=== PATIENT | female | born 1985 | race Caucasian/White ===

== ENCOUNTER 2016-12-03 19:40 | Emergency (ER) | payer OTHER, MEDICAID ==
[2016-12-03 22:37] VITALS: BP 134/80
[2016-12-03] MEDS ORDERED: cefTRIAXone 1 GM, Lidocaine 1% 2.1 ML IM ONE ×2 (23:11)
--- NOTE | 2016-12-03 23:21 | EDM.PDOC ---
ED HPI ENT - General Chief Complaint: ENT Problem Stated Complaint: LT SIDE FACE SWOLLEN Time Seen by Provider: 12/03/16 22:53 Source: Reports: Patient History Limitations: Reports: No limitations - History of Present Illness Timing/Duration: Reports: Day(s): Severity: moderate Location: Reports: left Ear Quality: Reports: Same as previous episode, Sharp, Throbbing Improves with: Reports: None Worsens with: Reports: None Associated symptoms: Reports: denies other symptoms Treatment(s) [employer]: Reports: NSAIDS, Other (see below) - Related Data Allergies/ADRs: Allergies Allergy/AdvReac Type Severity Reaction Status Date / Time levofloxacin [From Levaquin] AdvReac Nausea Verified 12/03/16 22:40 Home Meds: Home Meds Cefdinir [Omnicef] 600 mg PO DAILY 12/03/16 [History] FLUoxetine [PROzac] 20 mg PO DAILY 12/03/16 [History] Past Medical History HEENT History: Reports: Otitis media Other OB/BYN History: Recent mastitis Psychiatric History: Reports: Anxiety, Depression - Infectious Disease History Infectious Disease History: Reports: Chicken pox Social & Family History - Tobacco Use Smoking Status *Q: Current Some Day Smoker Years of Tobacco use: 10 Packs/Tins Daily: 0.2 Used Tobacco, but Quit: Yes Month Tobacco Last Used: 48 Second Hand Smoke Exposure: No - Caffeine Use Caffeine Use: Reports: Coffee - Recreational Drug Use Recreational Drug Use: No - Living Situation & Occupation Living situation: Reports: Occupation: employed (lives in [facility]) ED ROS ENT - Review of Systems Review Of Systems: See Below Constitutional: Reports: fever, chills, malaise HEENT: Reports: Ear pain Respiratory: Reports: no symptoms Cardiovascular: Reports: No symptoms Endocrine: Reports: no symptoms GI/Abdominal: Reports: No symptoms : Reports: no symptoms Musculoskeletal: Reports: no symptoms Skin: Reports: no symptoms Neurological: Reports: no symptoms Psychiatric: Reports: No symptoms Hematologic/Lymphatic: Reports: no symptoms Immunologic: Reports: no symptoms ED EXAM, ENT - Physical Exam Exam: See Below Exam Limited By: No limitations General Appearance: alert, WD/WN, no apparent distress Eye Exam: bilateral eye: normal inspection Ears: canal discharge, canal swelling (Unable to visualize TMs due to edema), other (Left ear canal very tender to exam) Nose: normal inspection Mouth/Throat: Normal inspection, Normal gums, Normal lips, Normal oropharynx, Normal teeth Head: atraumatic, normocephalic Neck: normal inspection, supple, non-tender, full range of motion Respiratory/Chest: no respiratory distress, lungs clear Cardiovascular: regular rate, rhythm, no murmur, no rub GI/Abdominal: normal bowel sounds (Female) Exam: Deferred Rectal (Female) Exam: Deferred Back: normal inspection Extremities: normal inspection Neurological: alert, oriented Psychiatric: normal affect, normal mood Skin: Warm Lymphatic: no adenopathy Course - Vital Signs Last Recorded V/S: Last Vital Signs Temp 38.4 C H 12/03/16 22:36 Pulse 126 H 12/03/16 22:36 Resp 18 12/03/16 22:36 BP 134/80 12/03/16 22:36 Pulse Ox 96 12/03/16 22:36 - Orders/Labs/Meds Meds: Medications Discontinued Medications Generic Name Dose Route Start Last Admin Trade Name Marcel PRN Reason Stop Dose Admin Ceftriaxone Sodium 1 gm/ 0 gm 12/03/16 23:11 Lidocaine HCl 2.1 ml IM 12/03/16 23:12 ONETIME ONE - Re-Assessments/Exams Free Text/Narrative Re-Assessment/Exam: 12/03/16 23:20 Will give Rocephin with lidocaine 1 g IM, change antibiotic therapy from Cefnir 300mg daily to clindamycin 150 tabs 3 times a day x10 days, advised to continue the Ciprodex drops to left ear, Percocet one to 2 tabs every 4-6 when necessary pain, continue Motrin as directed, followup with primary care for recheck in 3 day, will need to return to ER or urgent care for recheck if not improved or symptoms worsen 12/03/16 23:21 Departure - Departure Time of Disposition: 23:23 Disposition: Home, Self-Care 01 Condition: good Clinical Impression: Otitis media, Otitis externa Forms: ED Department Discharge Care Plan Goals: Otitis externa/media -Rocephin 1 g IM and ER -Stop Ceftin -Start clindamycin 150 mg take 2 capsules 3 times a day x10 days -Treat pain with Percocet one to 2 by mouth every 4-6 when necessary pain -Continue with ibuprofen 600 by mouth every 8 when necessary pain -Primary care recheck in 3 days -Return to urgent care or ER sooner if has increased pain, fever, chills, nausea , vomiting, diarrhea, rash or any concerns. - Problem List & Annotations (1) Otitis externa SNOMED Code(s): 1097118 Code(s): H60.90 - UNSPECIFIED OTITIS EXTERNA, UNSPECIFIED EAR Status: Acute Priority: High Current Visit: Yes Qualifiers: Otitis externa type: swimmer's ear Laterality: left (2) Otitis media SNOMED Code(s): 20089496 Code(s): H66.90 - OTITIS MEDIA, UNSPECIFIED, UNSPECIFIED EAR Status: Acute Priority: Medium Current Visit: Yes Qualifiers: Laterality: left Chronicity: acute Spontaneous tympanic membrane rupture : without spontaneous rupture - Problem List Review Problem List Initiated/Reviewed/Updated: Yes - Assessment/Plan Plan: Otitis externa/media -Rocephin 1 g IM and ER -Stop Ceftin -Start clindamycin 150 mg take 2 capsules 3 times a day x10 days -Treat pain with Percocet one to 2 by mouth every 4-6 when necessary pain -Continue with ibuprofen 600 by mouth every 8 when necessary pain -Primary care recheck in 3 days -Return to urgent care or ER sooner if has increased pain, fever, chills, nausea , vomiting, diarrhea, rash or any concerns.
== END 2016-12-04 00:24 | disposition home or self-care (01) ==
LOC: JP.ED 19:40
DX: H60.90 Unspecified otitis externa, unspecified ear (principal); H66.90 Otitis media, unspecified, unspecified ear; F17.210 Nicotine dependence, cigarettes, uncomplicated; Z79.899 Other long term (current) drug therapy
CPT/HCPCS: 96372; 99283; J0696

== ENCOUNTER 2018-03-02 06:47 | Emergency (ER) | payer MEDICAID, OTHER ==
[2018-03-02] MEDS ORDERED: Ondansetron 4 MG/2 ML SDV IVPUSH ONE (07:53)
[2018-03-02] MEDS ORDERED: Ketorolac 30 MG/ML SDV IVPUSH ONE (07:53)
[2018-03-02] MEDS ORDERED: Sodium Chloride 0.9% 1,000 ML IV ONE (07:54)
--- NOTE | 2018-03-02 07:58 | EDM.PDOC ---
ED HPI GENERAL MEDICAL PROBLEM - General Chief Complaint: Abdominal Pain Stated Complaint: ABDOMINAL PAIN / VOMITING Time Seen by Provider: 03/02/18 07:45 Source of Information: Reports: Patient History Limitations: Reports: No Limitations - History of Present Illness INITIAL COMMENTS - FREE TEXT/NARRATIVE: 32-year-old female, usually healthy was drinking alcohol last night but felt fine. She was also trying to stay hydrated, went to bed about 1:00 and woke up at 3 AM very nauseated with a headache. She's had persistent emesis ever since. She is having strong upper abdominal and left upper quadrant cramping. No radiation of pain to her back, chills but no fever, no diarrhea. She has a horrible headache and is miserable. Onset: Sudden (Woke at 3 AM, 5 hours ago with symptoms) Severity: Moderate Associated Symptoms: Reports: Loss of Appetite, Nausea/Vomiting. Denies: Cough , Shortness of Breath Upper Abdomen Pain Score (Numeric/FACES): 6 - Related Data Allergies Allergy/AdvReac Type Severity Reaction Status Date / Time levofloxacin [From Levaquin] AdvReac Nausea Verified 03/02/18 07:26 Home Meds: Home Meds FLUoxetine [PROzac] 20 mg PO DAILY 12/03/16 [History] ClonazePAM [KlonoPIN] 1 tab PO DAILY 03/02/18 [History] Naltrexone 1 tab PO BID 03/02/18 [History] buPROPion [buPROPion XL] 150 mg PO BID 03/02/18 [History] Past Medical History HEENT History: Reports: Otitis Media Other OB/BYN History: Recent mastitis Psychiatric History: Reports: Anxiety, Depression - Infectious Disease History Infectious Disease History: Reports: Chicken Pox - Past Surgical History Female Surgical History: Reports: Tubal Ligation Social & Family History - Tobacco Use Smoking Status *Q: Current Every Day Smoker Years of Tobacco use: 15 Packs/Tins Daily: 0.2 Used Tobacco, but Quit: No Second Hand Smoke Exposure: Yes - Caffeine Use Caffeine Use: Reports: Coffee, Energy Drinks, Soda - Alcohol Use Days Per Week of Alcohol Use: 1 Number of Drinks Per Day: 4 Total Drinks Per Week: 4 Date of Last Drink: 03/02/18 Time of Last Drink: 01:00 - Recreational Drug Use Recreational Drug Use: No - Living Situation & Occupation Living situation: Reports: Occupation: Employed ED ROS GENERAL - Review of Systems Review Of Systems: See Below Constitutional: Reports: Chills, Malaise. Denies: Fever HEENT: Reports: No Symptoms Respiratory: Denies: Shortness of Breath Cardiovascular: Denies: Chest Pain GI/Abdominal: Reports: Abdominal Pain, Nausea, Vomiting. Denies: Diarrhea : Reports: No Symptoms Skin: Reports: No Symptoms Neurological: Reports: Headache Psychiatric: Reports: No Symptoms ED EXAM, GI/ABD - Physical Exam Exam: See Below Exam Limited By: No Limitations General Appearance: Alert, Mild Distress (Looks very uncomfortable, actively vomiting) Eyes: Bilateral: Normal Appearance Respiratory/Chest: No Respiratory Distress Cardiovascular: Regular Rate, Rhythm. No: Tachycardia GI/Abdominal Exam: Soft, Tender (Reacts with tenderness to palpation over the epigastric and left upper quadrant), Abnormal Bowel Sounds (Very hypoactive bowel sounds, no distention) Neurological: Alert Skin Exam: Warm, Dry Course - Vital Signs Last Recorded V/S: Last Vital Signs Temp 96.8 F 03/02/18 09:19 Pulse 105 H 03/02/18 09:19 Resp 14 03/02/18 09:19 BP 114/57 L 03/02/18 09:19 Pulse Ox 98 03/02/18 09:19 - Orders/Labs/Meds Labs: Laboratory Tests 03/02/18 03/02/18 Range/Units 08:03 08:03 WBC 12.7 H (4.5-11.0) K/uL RBC 4.44 (3.30-5.50) M/uL Hgb 13.5 (12.0-15.0) g/dL Hct 40.1 (36.0-48.0) % MCV 90 (80-98) fL MCH 30 (27-31) pg MCHC 34 (32-36) % Plt Count 285 (150-400) K/uL Neut % (Auto) 84 H (36-66) % Lymph % (Auto) 12 L (24-44) % [place] % (Auto) 3 (2-6) % Eos % (Auto) 1 L (2-4) % Baso % (Auto) 0 (0-1) % Sodium 139 L (140-148) mmol/L Potassium 4.5 (3.6-5.2) mmol/L Chloride 104 (100-108) mmol/L Carbon Dioxide 21 (21-32) mmol/L Anion Gap 18.5 H (5.0-14.0) mmol/L BUN 10 (7-18) mg/dL Creatinine 0.7 (0.6-1.0) mg/dL Est Cr Clr Drug Dosing 86.26 mL/min Estimated GFR (MDRD) > 60 (>60) Glucose 82 (74-106) mg/dL Calcium 8.2 L (8.5-10.1) mg/dL Lipase 108 (73-393) U/L Meds: Medications Discontinued Medications Generic Name Dose Route Start Last Admin Trade Name Freq PRN Reason Stop Dose Admin Sodium Chloride 1,000 mls @ 1,000 mls/hr 03/02/18 07:54 03/02/18 08:26 Normal Saline IV 03/02/18 08:53 1,000 mls/hr ONETIME ONE Administration Ketorolac Tromethamine 30 mg 03/02/18 07:53 03/02/18 08:29 Toradol IVPUSH 03/02/18 07:54 30 mg ONETIME ONE Administration Ondansetron HCl 4 mg 03/02/18 07:53 03/02/18 08:27 Zofran IVPUSH 03/02/18 07:54 4 mg ONETIME ONE Administration - Re-Assessments/Exams Free Text/Narrative Re-Assessment/Exam: 03/02/18 07:57 Patient will be hydrated with 1 L of normal saline, given 4 mg of Zofran and 30 mg of IV Toradol. CBC BMP and lipase are obtained for reassurance. 03/02/18 08:43 Patient responded well to the medication and hydration. White count was slightly elevated, the rest of the labs were reassuring. She'll be discharged with 5 additional doses of Zofran to use as needed and can return if worsening. Departure - Departure Time of Disposition: 09:23 Disposition: Home, Self-Care 01 Condition: Good Clinical Impression: Abdominal pain Qualifiers: Abdominal location: upper abdomen, unspecified Qualified Code(s): R10.10 - Upper abdominal pain, unspecified Nausea and vomiting Qualifiers: Vomiting type: unspecified Vomiting Intractability: non-intractable Qualified Code(s): R11.2 - Nausea with vomiting, unspecified - Discharge Information Instructions: Nausea and Vomiting, Adult Referrals: PCP,None [Primary Care Provider] - Forms: ED Department Discharge Care Plan Goals: Rest today, use Zofran as needed for persistent nausea and increase fluids as tolerated with small frequent amounts. Return if worsening despite treatment.
[2018-03-02 09:20] VITALS: BP 114/57
== END 2018-03-02 09:23 | disposition home or self-care (01) ==
LOC: JP.ED 06:47
DX: R10.10 Upper abdominal pain, unspecified (principal); R11.2 Nausea with vomiting, unspecified; F17.210 Nicotine dependence, cigarettes, uncomplicated; Z88.1 Allergy status to other antibiotic agents; Z79.899 Other long term (current) drug therapy
CPT/HCPCS: 36415; 80048; 83690; 85025; 96361; 96374; 96375; 99284; J1885; J2405; J7030

== ENCOUNTER 2018-06-21 17:45 | Observation (INO) | payer OTHER ==
[2018-06-21] MEDS ORDERED: Sodium Chloride 0.9% 10 ML Syringe FLUSH PRN (18:49)
[2018-06-21] MEDS ORDERED: Ondansetron 4 MG/2 ML SDV IVPUSH ONE (18:55)
[2018-06-21] MEDS ORDERED: HYDROmorphone 0.5 MG/0.5 ML Syringe IVPUSH ONE (18:55)
--- NOTE | 2018-06-21 18:58 | EDM.PDOC ---
ED HPI GENERAL MEDICAL PROBLEM - General Chief Complaint: Abdominal Pain Stated Complaint: ABD PAIN Time Seen by Provider: 06/21/18 18:45 Source of Information: Reports: Patient, Family, RN Notes Reviewed History Limitations: Reports: No Limitations - History of Present Illness INITIAL COMMENTS - FREE TEXT/NARRATIVE: Ana presents today with complaints of worsening fever, left flank pain and abdominal pain for 24 hours. She did have a UA done in the clinic yesterday with no other lab work. She was prescribed bactrim DS, has taken 2 doses. Right Abdominal Pain Score (Numeric/FACES): 8 Right Posterior Flank Pain Score (Numeric/FACES): 6 - Related Data Allergies Allergy/AdvReac Type Severity Reaction Status Date / Time levofloxacin [From Levaquin] AdvReac Nausea Verified 06/21/18 18:40 Home Meds: Home Meds RX: FLUoxetine [PROzac] 20 mg PO DAILY 12/03/16 [History] Naltrexone 50 mg PO BID 03/02/18 [History] RX: ClonazePAM [KlonoPIN] 1 tab PO DAILY 03/02/18 [History] Sulfamethoxazole/Trimethoprim [Bactrim Ds Tablet] 1 each PO BID 06/21/18 [ History] buPROPion HCl [Wellbutrin SR] 150 mg PO BID 06/21/18 [History] Past Medical History HEENT History: Reports: Otitis Media Genitourinary History: Reports: UTI, Recurrent [employer] History: Reports: Other [employer] History: Recent mastitis Psychiatric History: Reports: Anxiety, Depression - Infectious Disease History Infectious Disease History: Reports: Chicken Pox - Past Surgical History Female Surgical History: Reports: Tubal Ligation Social & Family History - Tobacco Use Smoking Status *Q: Light Tobacco Smoker Years of Tobacco use: 16 Packs/Tins Daily: 0.1 - Caffeine Use Caffeine Use: Reports: Coffee, Energy Drinks, Soda - Recreational Drug Use Recreational Drug Use: No - Living Situation & Occupation Living situation: Reports: Occupation: Employed ED ROS GENERAL - Review of Systems Review Of Systems: See Below Constitutional: Reports: Fever, Chills. Denies: Malaise, Weakness HEENT: Reports: No Symptoms Respiratory: Reports: No Symptoms Cardiovascular: Reports: No Symptoms Endocrine: Reports: No Symptoms GI/Abdominal: Reports: Nausea, Vomiting : Reports: Dysuria, Flank Pain, Pain. Denies: Frequency, Hematuria, Urgency, Urinary Retention Musculoskeletal: Reports: Other (Left flank pain) Skin: Reports: No Symptoms Neurological: Reports: No Symptoms Psychiatric: Reports: No Symptoms Hematologic/Lymphatic: Reports: No Symptoms Immunologic: Reports: No Symptoms ED EXAM, GI/ABD - Physical Exam Exam: See Below Text/Narrative:: Ana presents today for complaints of worsening fever, left flank pain. Exam Limited By: No Limitations General Appearance: Alert, WD/WN, Moderate Distress Eyes: Bilateral: Normal Appearance, EOMI Ears: Normal External Exam, Normal Canal, Hearing Grossly Normal, Normal TMs Nose: Normal Inspection, Normal Mucosa, No Blood Throat/Mouth: Normal Inspection, Normal Lips, Normal Teeth, Normal Gums, Normal Oropharynx, Normal Voice, No Airway Compromise Head: Atraumatic, Normocephalic Neck: Normal Inspection, Supple, Non-Tender, Full Range of Motion. No: Lymphadenopathy (R), Lymphadenopathy (L) Respiratory/Chest: No Respiratory Distress, Lungs Clear, Normal Breath Sounds, No Accessory Muscle Use, Chest Non-Tender Cardiovascular: Normal Peripheral Pulses, Regular Rate, Rhythm, No Edema, No Murmur, No Rub GI/Abdominal Exam: Normal Bowel Sounds, Soft, No Organomegaly, No Distention, No Mass, Tender, Other (Tenderness to RLQ). No: Guarding, Rigid, Rebound Back Exam: Full Range of Motion, CVA Tenderness (R). No: CVA Tenderness (L), Decreased Range of Motion, Muscle Spasm Extremities: Normal Inspection, Normal Range of Motion, Non-Tender, No Pedal Edema, Normal Capillary Refill Neurological: Alert, Oriented, CN II-XII Intact, Normal Cognition, Normal Gait, Normal Reflexes, No Motor/Sensory Deficits Psychiatric: Normal Affect, Normal Mood Skin Exam: Dry, Intact, Normal Color, No Rash, Increased Warmth Lymphatic: No Adenopathy Course - Vital Signs Last Recorded V/S: Last Vital Signs Temp 37.2 C 06/21/18 22:24 Pulse 103 H 06/21/18 22:24 Resp 18 06/21/18 22:24 BP 107/59 L 06/21/18 22:24 Pulse Ox 96 06/21/18 22:24 - Orders/Labs/Meds Orders: Active Orders 24 hr Category Date Time Status CULTURE BLOOD [BC] Stat Lab 06/21/18 18:55 Received CULTURE BLOOD [BC] Stat Lab 06/21/18 19:05 Received CULTURE URINE [RM] Stat Lab 06/21/18 18:56 Received Sodium Chloride 0.9% [Saline Flush] Med 06/21/18 18:49 Active 10 ml FLUSH ASDIRECTED PRN Saline Lock Insert [OM.PC] Routine Oth 06/21/18 18:49 Ordered Medication Orders Acetaminophen (Tylenol) 650 mg PO Q4H PRN PRN Reason: Pain (Mild 1-3)/fever Bupropion HCl (Wellbutrin Xl) 150 mg PO BID [facility] Clonazepam (Klonopin) 0.5 mg PO DAILY [facility] Last Admin: 06/21/18 22:42 Dose: Not Given Fluoxetine HCl (Prozac) 20 mg PO DAILY [facility] Sodium Chloride (Normal Saline) 1,000 mls @ 125 mls/hr IV ASDIRECTED [facility] Last Admin: 06/21/18 22:43 Dose: 125 mls/hr Ibuprofen (Motrin) 600 mg PO Q6H PRN PRN Reason: Pain/Fever Naltrexone HCl (Naltrexone) 50 mg PO BID [facility] Ondansetron HCl (Zofran Odt) 4 mg PO Q6H PRN PRN Reason: Nausea able to take PO Ondansetron HCl (Zofran) 4 mg IV Q6H PRN PRN Reason: Nausea/Vomiting Sodium Chloride (Saline Flush) 10 ml FLUSH ASDIRECTED PRN PRN Reason: Keep Vein Open Labs: Laboratory Tests 06/21/18 06/21/18 06/21/18 Range/Units 18:56 19:09 19:09 WBC 15.3 H (4.5-11.0) K/uL RBC 4.44 (3.30-5.50) M/uL Hgb 13.7 (12.0-15.0) g/dL Hct 40.6 (36.0-48.0) % MCV 91 (80-98) fL MCH 31 (27-31) pg MCHC 34 (32-36) % Plt Count 273 (150-400) K/uL Neut % (Auto) 87 H (36-66) % Lymph % (Auto) 8 L (24-44) % [place] % (Auto) 5 (2-6) % Eos % (Auto) 0 L (2-4) % Baso % (Auto) 0 (0-1) % Sodium 132 L (140-148) mmol/L Potassium 4.0 (3.6-5.2) mmol/L Chloride 99 L (100-108) mmol/L Carbon Dioxide 25 (21-32) mmol/L Anion Gap 12.0 (5.0-14.0) mmol/L BUN 10 (7-18) mg/dL Creatinine 0.9 (0.6-1.0) mg/dL Est Cr Clr Drug Dosing 76.77 mL/min Estimated GFR (MDRD) > 60 (>60) Glucose 88 (74-106) mg/dL Lactic Acid (0.4-2.0) mmol/L Calcium 8.5 (8.5-10.1) mg/dL Total Bilirubin 0.6 D (0.2-1.0) mg/dL AST 13 L (15-37) U/L ALT 23 (12-78) U/L Alkaline Phosphatase 45 L (46-116) U/L C-Reactive Protein 10.10 H (0.0-0.3) mg/dL Total Protein 7.2 (6.4-8.2) g/dL Albumin 3.2 L (3.4-5.0) g/dL Globulin 4.0 H (2.3-3.5) g/dL Albumin/Globulin Ratio 0.8 L (1.2-2.2) Urine Color Yellow Urine Appearance Slightly cloudy Urine pH 6.5 (4.5-8.0) Ur Specific [place] 1.005 L (1.008-1.030) Urine Protein Negative (NEGATIVE) mg/dL Urine Glucose (UA) Normal (NEGATIVE) mg/dL Urine Ketones Negative (NEGATIVE) mg/dL Urine Occult Blood Moderate (NEGATIVE) Urine Nitrite Negative (NEGATIVE) Urine Bilirubin Negative (NEGATIVE) Urine Urobilinogen Normal (NORMAL) mg/dL Ur Leukocyte Esterase Large (NEGATIVE) Urine RBC 5-10 H (0-5) Urine WBC 75-100 H (0-5) Ur Epithelial Cells Moderate Amorphous Sediment Not seen Urine Bacteria Many Urine Mucus Not seen 06/21/18 Range/Units 19:09 WBC (4.5-11.0) K/uL RBC (3.30-5.50) M/uL Hgb (12.0-15.0) g/dL Hct (36.0-48.0) % MCV (80-98) fL MCH (27-31) pg MCHC (32-36) % Plt Count (150-400) K/uL Neut % (Auto) (36-66) % Lymph % (Auto) (24-44) % [place] % (Auto) (2-6) % Eos % (Auto) (2-4) % Baso % (Auto) (0-1) % Sodium (140-148) mmol/L Potassium (3.6-5.2) mmol/L Chloride (100-108) mmol/L Carbon Dioxide (21-32) mmol/L Anion Gap (5.0-14.0) mmol/L BUN (7-18) mg/dL Creatinine (0.6-1.0) mg/dL Est Cr Clr Drug Dosing mL/min Estimated GFR (MDRD) (>60) Glucose (74-106) mg/dL Lactic Acid 1.3 (0.4-2.0) mmol/L Calcium (8.5-10.1) mg/dL Total Bilirubin (0.2-1.0) mg/dL AST (15-37) U/L ALT (12-78) U/L Alkaline Phosphatase (46-116) U/L C-Reactive Protein (0.0-0.3) mg/dL Total Protein (6.4-8.2) g/dL Albumin (3.4-5.0) g/dL Globulin (2.3-3.5) g/dL Albumin/Globulin Ratio (1.2-2.2) Urine Color Urine Appearance Urine pH (4.5-8.0) Ur Specific [place] (1.008-1.030) Urine Protein (NEGATIVE) mg/dL Urine Glucose (UA) (NEGATIVE) mg/dL Urine Ketones (NEGATIVE) mg/dL Urine Occult Blood (NEGATIVE) Urine Nitrite (NEGATIVE) Urine Bilirubin (NEGATIVE) Urine Urobilinogen (NORMAL) mg/dL Ur Leukocyte Esterase (NEGATIVE) Urine RBC (0-5) Urine WBC (0-5) Ur Epithelial Cells Amorphous Sediment Urine Bacteria Urine Mucus Patient status, lab work reviewed with Dr. Fish. We will administer another liter of IV fluids, toradol and reassess. Meds: Medications Generic Name Dose Route Start Last Admin Trade Name Freq PRN Reason Stop Dose Admin Acetaminophen 650 mg 09/15/18 22:24 Tylenol PO Q4H PRN Pain (Mild 1-3)/fever Bupropion HCl 150 mg 06/22/18 09:00 Wellbutrin Xl PO BID [facility] Clonazepam 0.5 mg 06/21/18 22:45 06/21/18 22:42 Klonopin PO Not Given DAILY [facility] Fluoxetine HCl 20 mg 06/22/18 09:00 Prozac PO DAILY [facility] Sodium Chloride 1,000 mls @ 125 mls/hr 06/21/18 22:24 06/21/18 22:43 Normal Saline IV 125 mls/hr ASDIRECTED [facility] Administration Ibuprofen 600 mg 06/21/18 22:24 Motrin PO Q6H PRN Pain/Fever Naltrexone HCl 50 mg 06/22/18 09:00 Naltrexone PO BID [facility] Ondansetron HCl 4 mg 06/21/18 22:24 Zofran Odt PO Q6H PRN Nausea able to take PO Ondansetron HCl 4 mg 06/21/18 22:24 Zofran IV Q6H PRN Nausea/Vomiting Sodium Chloride 10 ml 06/21/18 18:49 Saline Flush FLUSH ASDIRECTED PRN Keep Vein Open Discontinued Medications Generic Name Dose Route Start Last Admin Trade Name Freq PRN Reason Stop Dose Admin Ceftriaxone Sodium 2,000 mg 06/21/18 19:13 06/21/18 19:28 Rocephin IVPUSH 06/21/18 19:14 Not Given ONETIME ONE Hydromorphone HCl 0.5 mg 06/21/18 18:55 06/21/18 19:11 Dilaudid IVPUSH 06/21/18 18:56 0.5 mg ONETIME ONE Administration Sodium Chloride 1,000 mls @ 1,000 mls/hr 06/21/18 19:00 06/21/18 19:01 Normal Saline IV 1,000 mls/hr ASDIRECTED [facility] Administration Acetaminophen 1,000 mg/ Premix 100 mls @ 400 mls/hr 06/21/18 19:11 06/21/18 20:31 IV 06/21/18 19:25 400 mls/hr NOW ONE Administration Ceftriaxone Sodium 2 gm/ 50 mls @ 100 mls/hr 06/21/18 19:18 06/21/18 19:28 Sodium Chloride IV 06/21/18 19:47 100 mls/hr ONETIME ONE Administration Lactated Ringer's 1,000 mls @ 1,000 mls/hr 06/21/18 20:00 06/21/18 20:32 Ringers, Lactated IV 1,000 mls/hr ASDIRECTED [facility] Administration Ketorolac Tromethamine 30 mg 06/21/18 19:50 06/21/18 20:27 Toradol IVPUSH 06/21/18 19:51 30 mg ONETIME ONE Administration Ondansetron HCl 4 mg 06/21/18 18:55 06/21/18 19:09 Zofran IVPUSH 06/21/18 18:56 4 mg ONETIME ONE Administration - Re-Assessments/Exams Free Text/Narrative Re-Assessment/Exam: 06/21/18 21:02 Patient continues to have pain of right flank, nausea, with no significant improvement in condition. She is in agreement with admission. Departure - Departure Time of Disposition: 21:13 Disposition: Admitted As Inpatient 65 Condition: Fair Clinical Impression: Pyelonephritis - Discharge Information *PRESCRIPTION DRUG MONITORING PROGRAM REVIEWED*: No *COPY OF PRESCRIPTION DRUG MONITORING REPORT IN PATIENT KEELY: No - My Orders Last 24 Hours: My Active Orders 06/21/18 18:49 Sodium Chloride 0.9% [Saline Flush] 10 ml FLUSH ASDIRECTED PRN Saline Lock Insert [OM.PC] Routine 06/21/18 18:55 CULTURE BLOOD [BC] Stat 06/21/18 18:56 CULTURE URINE [RM] Stat 06/21/18 19:05 CULTURE BLOOD [BC] Stat - Assessment/Plan Last 24 Hours: My Active Orders 06/21/18 18:49 Sodium Chloride 0.9% [Saline Flush] 10 ml FLUSH ASDIRECTED PRN Saline Lock Insert [OM.PC] Routine 06/21/18 18:55 CULTURE BLOOD [BC] Stat 06/21/18 18:56 CULTURE URINE [RM] Stat 06/21/18 19:05 CULTURE BLOOD [BC] Stat Assessment:: Pyelonephritis Plan: Patient will be admitted for pyelonephritis per Dr. Fish.
[2018-06-21] MEDS ORDERED: Sodium Chloride 0.9% 1,000 ML IV SCH (19:00)
[2018-06-21] MEDS ORDERED: Acetaminophen 1,000 MG in Premix Bag 1 BAG IV ONE (19:11)
[2018-06-21] MEDS ORDERED: cefTRIAXone 500 MG Vial IVPUSH ONE (19:13)
[2018-06-21] MEDS ORDERED: cefTRIAXone 2 GM in Sodium Chloride 0.9% 50 ML IV ONE (19:18)
[2018-06-21] MEDS ORDERED: Ketorolac 30 MG/ML SDV IVPUSH ONE (19:50)
[2018-06-21] MEDS ORDERED: Lactated Ringers 1,000 ML IV SCH (20:00)
--- NOTE | 2018-06-21 21:52 | PCM.HP ---
H&P History of Present Illness - General Date of Service: 06/21/18 Admit Problem/Dx: Admission Diagnosis/Problem Admission Diagnosis/Problem Pyelonephritis Source of Information: Patient, Provider History Limitations: Reports: No Limitations - History of Present Illness Initial Comments - Free Text/Narative: Ana presents to the emergency room today with one week of dysuria followed by 2 days of fever and progressive right flank pain. She has also had episodes of vomiting earlier in the day. She describes her pain as achy with some sharp components. The pain is moderate to moderately severe and radiates throughout the right side of her abdomen. Pain waxes and wanes without any obvious trigger. She's been taking Tylenol and ibuprofen with minimal improvement. She has not had anything to eat today. She has had episodes of warmth and sweating but has not measured any temperatures but suspect she is having fevers. She has not had any diarrhea. No sick contacts or recent travel. She did have a UA done yesterday at the clinic which was suggestive of a UTI and she was started on Bactrim. She took 1 dose last night and one dose this morning. Workup in the emergency room revealed a leukocytosis and urine sample still strongly suggestive of infection. Based on clinical examination there is concern for right-sided pyelonephritis. She is febrile and mildly tachycardic. She is feeling a little better with IV fluids and pain medications but is not safe for outpatient management at this time. Right Abdominal Pain Score (Numeric/FACES): 8 - Related Data Allergies/Adverse Reactions: Allergies Allergy/AdvReac Type Severity Reaction Status Date / Time levofloxacin [From Levaquin] AdvReac Nausea Verified 06/21/18 18:40 Home Medications: Home Meds FLUoxetine [PROzac] 20 mg PO DAILY 12/03/16 [History] ClonazePAM [KlonoPIN] 1 tab PO DAILY 03/02/18 [History] Naltrexone 50 mg PO BID 03/02/18 [History] Sulfamethoxazole/Trimethoprim [Bactrim Ds Tablet] 1 each PO BID 06/21/18 [ History] buPROPion HCl [Wellbutrin SR] 150 mg PO BID 06/21/18 [History] Past Medical History HEENT History: Reports: Otitis Media Genitourinary History: Reports: UTI, Recurrent 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 History: Recent mastitis Psychiatric History: Reports: Anxiety, Depression - Infectious Disease History Infectious Disease History: Reports: Chicken Pox - Past Surgical History Female Surgical History: Reports: Tubal Ligation Social & Family History - Family History : Denies: UTI, Recurrent - Tobacco Use Smoking Status *Q: Light Tobacco Smoker Years of Tobacco use: 16 Packs/Tins Daily: 0.1 - Caffeine Use Caffeine Use: Reports: Coffee, Energy Drinks, Soda - Alcohol Use Alcohol Use History: No - Recreational Drug Use Recreational Drug Use: No - Living Situation & Occupation Living situation: Reports: Occupation: Employed H&P Review of Systems - Review of Systems: Review Of Systems: See Below Free Text/Narrative: A complete 12 point review of systems was obtained. Pertinent positives and negatives are noted in the history of present illness. All other systems were reviewed and were negative except as noted. Exam - Exam Exam: See Below - Vital Signs Vital Signs: Last Vital Signs Temp 38.6 C H 06/21/18 20:15 Pulse 102 H 06/21/18 20:15 Resp 20 06/21/18 20:15 BP 123/77 06/21/18 20:15 Pulse Ox 99 06/21/18 20:15 Weight: 71.668 kg - Exam Quality Assessment: No: Supplemental Oxygen General: Alert, Oriented, Cooperative, Mild Distress HEENT: Conjunctiva Clear, Mucosa Moist & [place]. No: Scleral Icterus Neck: Supple, Trachea Midline. No: Lymphadenopathy Lungs: Clear to Auscultation, Normal Respiratory Effort Cardiovascular: Regular Rate, Regular Rhythm GI/Abdominal Exam: Normal Bowel Sounds, Soft, No Distention, Tender (right flank ) Back Exam: Normal Inspection, CVA Tenderness (R). No: CVA Tenderness (L) Extremities: No Pedal Edema. No: Increased Warmth Skin: Warm, Dry Neuro Extensive - Mental Status: Alert, Oriented x3, Nl Response to Commands Neuro Extensive - Motor, Sensory, Reflexes: CN II-XII Intact. No: Dysarthria, Abnormal Motor, Tremor Psychiatric: Alert, Normal Affect - Patient Data Lab Results Last 24 hrs: Laboratory Results - last 24 hr 06/21/18 06/21/18 06/21/18 Range/Units 18:56 19:09 19:09 WBC 15.3 H (4.5-11.0) K/uL RBC 4.44 (3.30-5.50) M/uL Hgb 13.7 (12.0-15.0) g/dL Hct 40.6 (36.0-48.0) % MCV 91 (80-98) fL MCH 31 (27-31) pg MCHC 34 (32-36) % Plt Count 273 (150-400) K/uL Neut % (Auto) 87 H (36-66) % Lymph % (Auto) 8 L (24-44) % [place] % (Auto) 5 (2-6) % Eos % (Auto) 0 L (2-4) % Baso % (Auto) 0 (0-1) % Sodium 132 L (140-148) mmol/L Potassium 4.0 (3.6-5.2) mmol/L Chloride 99 L (100-108) mmol/L Carbon Dioxide 25 (21-32) mmol/L Anion Gap 12.0 (5.0-14.0) mmol/L BUN 10 (7-18) mg/dL Creatinine 0.9 (0.6-1.0) mg/dL Est Cr Clr Drug Dosing 76.77 mL/min Estimated GFR (MDRD) > 60 (>60) Glucose 88 (74-106) mg/dL Lactic Acid (0.4-2.0) mmol/L Calcium 8.5 (8.5-10.1) mg/dL Total Bilirubin 0.6 D (0.2-1.0) mg/dL AST 13 L (15-37) U/L ALT 23 (12-78) U/L Alkaline Phosphatase 45 L (46-116) U/L C-Reactive Protein 10.10 H (0.0-0.3) mg/dL Total Protein 7.2 (6.4-8.2) g/dL Albumin 3.2 L (3.4-5.0) g/dL Globulin 4.0 H (2.3-3.5) g/dL Albumin/Globulin Ratio 0.8 L (1.2-2.2) Urine Color Yellow Urine Appearance Slightly cloudy Urine pH 6.5 (4.5-8.0) Ur Specific [place] 1.005 L (1.008-1.030) Urine Protein Negative (NEGATIVE) mg/dL Urine Glucose (UA) Normal (NEGATIVE) mg/dL Urine Ketones Negative (NEGATIVE) mg/dL Urine Occult Blood Moderate (NEGATIVE) Urine Nitrite Negative (NEGATIVE) Urine Bilirubin Negative (NEGATIVE) Urine Urobilinogen Normal (NORMAL) mg/dL Ur Leukocyte Esterase Large (NEGATIVE) Urine RBC 5-10 H (0-5) Urine WBC 75-100 H (0-5) Ur Epithelial Cells Moderate Amorphous Sediment Not seen Urine Bacteria Many Urine Mucus Not seen 06/21/18 Range/Units 19:09 WBC (4.5-11.0) K/uL RBC (3.30-5.50) M/uL Hgb (12.0-15.0) g/dL Hct (36.0-48.0) % MCV (80-98) fL MCH (27-31) pg MCHC (32-36) % Plt Count (150-400) K/uL Neut % (Auto) (36-66) % Lymph % (Auto) (24-44) % [place] % (Auto) (2-6) % Eos % (Auto) (2-4) % Baso % (Auto) (0-1) % Sodium (140-148) mmol/L Potassium (3.6-5.2) mmol/L Chloride (100-108) mmol/L Carbon Dioxide (21-32) mmol/L Anion Gap (5.0-14.0) mmol/L BUN (7-18) mg/dL Creatinine (0.6-1.0) mg/dL Est Cr Clr Drug Dosing mL/min Estimated GFR (MDRD) (>60) Glucose (74-106) mg/dL Lactic Acid 1.3 (0.4-2.0) mmol/L Calcium (8.5-10.1) mg/dL Total Bilirubin (0.2-1.0) mg/dL AST (15-37) U/L ALT (12-78) U/L Alkaline Phosphatase (46-116) U/L C-Reactive Protein (0.0-0.3) mg/dL Total Protein (6.4-8.2) g/dL Albumin (3.4-5.0) g/dL Globulin (2.3-3.5) g/dL Albumin/Globulin Ratio (1.2-2.2) Urine Color Urine Appearance Urine pH (4.5-8.0) Ur Specific [place] (1.008-1.030) Urine Protein (NEGATIVE) mg/dL Urine Glucose (UA) (NEGATIVE) mg/dL Urine Ketones (NEGATIVE) mg/dL Urine Occult Blood (NEGATIVE) Urine Nitrite (NEGATIVE) Urine Bilirubin (NEGATIVE) Urine Urobilinogen (NORMAL) mg/dL Ur Leukocyte Esterase (NEGATIVE) Urine RBC (0-5) Urine WBC (0-5) Ur Epithelial Cells Amorphous Sediment Urine Bacteria Urine Mucus Result Diagrams: 06/21/18 19:09 06/21/18 19:09 *Q Meaningful Use (ADM) - VTE Risk Assess *Q Each Risk Factor Represents 1 Point: Obesity ( BMI > 25 kg/m2) Total Score 1 Point Risk Factors: 1 Each Risk Factor Represents 2 Points: None Total Score 2 Point Risk Factors: 0 Each Risk Factor Represents 3 Points: None Total Score 3 Point Risk Factors: 0 Each Risk Factor Represents 5 Points: None Total Score 5 Point Risk Factors: 0 Venous Thromboembolism Risk Factor Score *Q: 1 - Problem List (1) Pyelonephritis SNOMED Code(s): 48661443 ICD Code: N12 - TUBULO-INTERSTITIAL NEPHRITIS, NOT SPCF ACUTE OR CHRONIC Status: Acute Current Visit: Yes Problem List Initiated/Reviewed/Updated: Yes Orders Last 24hrs: Active Orders 24 hr Category Date Time Status Patient Status Manage Transfer [TRANSFER] Routine ADT 06/21/18 21:47 Ordered CULTURE BLOOD [BC] Stat Lab 06/21/18 18:55 Received CULTURE BLOOD [BC] Stat Lab 06/21/18 19:05 Received CULTURE URINE [RM] Stat Lab 06/21/18 18:56 Received Lactated Ringers [Ringers, Lactated] 1,000 ml Med 06/21/18 20:00 Active IV ASDIRECTED Sodium Chloride 0.9% [Normal Saline] 1,000 ml Med 06/21/18 19:00 Active IV ASDIRECTED Sodium Chloride 0.9% [Saline Flush] Med 06/21/18 18:49 Active 10 ml FLUSH ASDIRECTED PRN Saline Lock Insert [OM.PC] Routine Oth 06/21/18 18:49 Ordered Resuscitation Status Routine Resus Stat 06/21/18 21:48 Ordered Medication Orders Sodium Chloride (Normal Saline) 1,000 mls @ 1,000 mls/hr IV ASDIRECTED [facility] Last Admin: 06/21/18 19:01 Dose: 1,000 mls/hr Lactated Ringer's (Ringers, Lactated) 1,000 mls @ 1,000 mls/hr IV ASDIRECTED [facility] Last Admin: 06/21/18 20:32 Dose: 1,000 mls/hr Sodium Chloride (Saline Flush) 10 ml FLUSH ASDIRECTED PRN PRN Reason: Keep Vein Open Assessment/Plan Comment:: ASSESSMENT AND PLAN - Right pyelonephritis - nausea and vomiting along with mild tachycardia with right flank pain and dysuria. Still fairly uncomfortable but slowly improving. She would benefit from some additional pain control and IV fluids. She has received ceftriaxone in the emergency room. Urine culture has been collected. -IV fluids overnight -Pain control -Nausea control -Follow-up urine culture Maintenance issues - - DVT prophylaxis - patient will be ambulatory - GI prophylaxis - not indicated - Nutrition - regular diet as tolerated - Clement catheter - not indicated CODE STATUS - full code Admission justification - patient will be referred to observation status for hydration and pain control overnight Disposition - I would anticipate discharge to home tomorrow Primary care physician - Kandace Fish M.D.
[2018-06-21] MEDS ORDERED: Ondansetron 4 MG/2 ML SDV IV PRN (22:24)
[2018-06-21] MEDS ORDERED: Ondansetron 4 MG Tab.DIS PO PRN (22:24)
[2018-06-21] MEDS: ClonazePAM 0.5 MG Tab PO SCH (22:42)
[2018-06-21] MEDS: Sodium Chloride 0.9% 1,000 ML IV SCH (22:43)
[2018-06-22] MEDS: Ibuprofen 600 MG Tab PO PRN ×2 (01:30→07:30)
[2018-06-22] MEDS: Acetaminophen 325 MG Tab PO PRN ×2 (04:59→09:16)
[2018-06-22] MEDS: Sodium Chloride 0.9% 1,000 ML IV SCH (06:42)
[2018-06-22] MEDS ORDERED: FLUoxetine 20 MG Cap PO SCH (09:00)
[2018-06-22] MEDS ORDERED: buPROPion 150 MG Tab.ER PO SCH (09:00)
[2018-06-22] MEDS ORDERED: buPROPion 150 MG Tab.SR PO SCH (09:00)
[2018-06-22] MEDS ORDERED: Naltrexone 50 MG Tab PO SCH (09:00)
[2018-06-22] MEDS: ClonazePAM 0.5 MG Tab PO SCH (09:14)
--- NOTE | 2018-06-22 09:58 | PCM.DCSUM1 ---
Discharge Summary - Hospital Course Brief History: 32-year-old female with recent diagnosis of a urinary tract infection who presented with worsening fever and right-sided flank pain. She was admitted for observation and management of right-sided pyelonephritis. Diagnosis: Stroke: No - Discharge Data Discharge Date: 06/22/18 Discharge Disposition: Home, Self-Care 01 Condition: Good - Discharge Diagnosis/Problem(s) (1) Pyelonephritis SNOMED Code(s): 93264312 ICD Code: N12 - TUBULO-INTERSTITIAL NEPHRITIS, NOT SPCF ACUTE OR CHRONIC Status: Acute - Patient Summary/Data Hospital Course: Ana presented to the emergency room with fever, dysuria and right flank pain. Workup in the emergency room revealed leukocytosis and fever and examination was concerning for pyelonephritis on the right side. She was given a dose of IV ceftriaxone and started on IV fluids. Given the severity of her pain as well as recent nausea and vomiting she was not thought to be safe for outpatient management. She received IV fluids overnight as well as additional pain control. The morning after admission her fever has resolved. Pain has improved but has not resolved. She's been able to tolerate her diet with no difficulties. She feels safe going home at this time given her fever has resolved. Her urine culture is growing a gram-negative jerry with identification pending. Escherichia coli is suspected and Bactrim that was previously prescribed should provide sufficient coverage. She'll be discharged home with the plan to continue her Bactrim. She will follow-up if symptoms do not continue to improve. She will be contacted if her urine culture grows a bacteria resistant to the Bactrim. - Patient Instructions Diet: Regular Diet as Tolerated Activity: As Tolerated Driving: May Drive Today Showering/Bathing: May Shower Notify Provider of: Fever, Increased Pain, Nausea and/or Vomiting Other/Special Instructions: 1. You were in the hospital for observation and management of right-sided pyelonephritis. Your condition has been improving with IV antibiotics and IV fluids. Please continue to take your Bactrim as prescribed. You can use acetaminophen and ibuprofen for pain and/or fever. We will contact you if your urine culture returns with a bacteria that is resistant to the Bactrim. 2. Continue your usual home medications as previously prescribed. 3. Follow up as needed if symptoms do not resolve. 4. Seek medical attention if you develop fever greater than 101, you have severe pain not controlled with your pills at home or if you have persistent vomiting or severe diarrhea. - Discharge Plan *PRESCRIPTION DRUG MONITORING PROGRAM REVIEWED*: No *COPY OF PRESCRIPTION DRUG MONITORING REPORT IN PATIENT KEELY: No Prescriptions/Med Rec: Ondansetron [Zofran ODT] 4 mg PO Q6H PRN #15 tab.dis PRN Reason: Anxiety Home Medications: Home Meds FLUoxetine [PROzac] 20 mg PO DAILY 12/03/16 [History] ClonazePAM [KlonoPIN] 1 tab PO DAILY 03/02/18 [History] Naltrexone 50 mg PO BID 03/02/18 [History] Sulfamethoxazole/Trimethoprim [Bactrim Ds Tablet] 1 each PO BID 06/21/18 [ History] buPROPion HCl [Wellbutrin SR] 150 mg PO BID 06/21/18 [History] Ondansetron [Zofran ODT] 4 mg PO Q6H PRN #15 tab.dis 06/22/18 [Rx] Patient Handouts: Pyelonephritis, Adult, Sulfamethoxazole; Trimethoprim, SMX- TMP tablets Referrals: Bishnu Harris MD [Primary Care Provider] - (f/u as needed if symptoms do not continue to improve) - Discharge Summary/Plan Comment DC Time >30 min.: No - Patient Data Vitals - Most Recent: Last Vital Signs Temp 37.1 C 06/22/18 03:00 Pulse 62 06/22/18 03:00 Resp 18 06/22/18 03:00 BP 140/62 06/22/18 03:00 Pulse Ox 98 06/22/18 03:00 Weight - Most Recent: 71.668 kg I&O - Last 24 hours: Intake & Output 06/21/18 06/22/18 06/22/18 22:59 06:59 14:59 Intake Total 796 Output Total 675 700 Balance 121 -700 Lab Results - Last 24 hrs: Laboratory Results - last 24 hr 06/21/18 06/21/18 06/21/18 Range/Units 18:56 19:09 19:09 WBC 15.3 H (4.5-11.0) K/uL RBC 4.44 (3.30-5.50) M/uL Hgb 13.7 (12.0-15.0) g/dL Hct 40.6 (36.0-48.0) % MCV 91 (80-98) fL MCH 31 (27-31) pg MCHC 34 (32-36) % Plt Count 273 (150-400) K/uL Neut % (Auto) 87 H (36-66) % Lymph % (Auto) 8 L (24-44) % [place] % (Auto) 5 (2-6) % Eos % (Auto) 0 L (2-4) % Baso % (Auto) 0 (0-1) % Sodium 132 L (140-148) mmol/L Potassium 4.0 (3.6-5.2) mmol/L Chloride 99 L (100-108) mmol/L Carbon Dioxide 25 (21-32) mmol/L Anion Gap 12.0 (5.0-14.0) mmol/L BUN 10 (7-18) mg/dL Creatinine 0.9 (0.6-1.0) mg/dL Est Cr Clr Drug Dosing 76.77 mL/min Estimated GFR (MDRD) > 60 (>60) Glucose 88 (74-106) mg/dL Lactic Acid (0.4-2.0) mmol/L Calcium 8.5 (8.5-10.1) mg/dL Total Bilirubin 0.6 D (0.2-1.0) mg/dL AST 13 L (15-37) U/L ALT 23 (12-78) U/L Alkaline Phosphatase 45 L (46-116) U/L C-Reactive Protein 10.10 H (0.0-0.3) mg/dL Total Protein 7.2 (6.4-8.2) g/dL Albumin 3.2 L (3.4-5.0) g/dL Globulin 4.0 H (2.3-3.5) g/dL Albumin/Globulin Ratio 0.8 L (1.2-2.2) Urine Color Yellow Urine Appearance Slightly cloudy Urine pH 6.5 (4.5-8.0) Ur Specific [place] 1.005 L (1.008-1.030) Urine Protein Negative (NEGATIVE) mg/dL Urine Glucose (UA) Normal (NEGATIVE) mg/dL Urine Ketones Negative (NEGATIVE) mg/dL Urine Occult Blood Moderate (NEGATIVE) Urine Nitrite Negative (NEGATIVE) Urine Bilirubin Negative (NEGATIVE) Urine Urobilinogen Normal (NORMAL) mg/dL Ur Leukocyte Esterase Large (NEGATIVE) Urine RBC 5-10 H (0-5) Urine WBC 75-100 H (0-5) Ur Epithelial Cells Moderate Amorphous Sediment Not seen Urine Bacteria Many Urine Mucus Not seen 06/21/18 06/22/18 06/22/18 Range/Units 19:09 05:31 05:31 WBC 14.9 H (4.5-11.0) K/uL RBC 4.07 (3.30-5.50) M/uL Hgb 12.3 (12.0-15.0) g/dL Hct 37.9 (36.0-48.0) % MCV 93 (80-98) fL MCH 30 (27-31) pg MCHC 33 (32-36) % Plt Count 212 (150-400) K/uL Neut % (Auto) (36-66) % Lymph % (Auto) (24-44) % [place] % (Auto) (2-6) % Eos % (Auto) (2-4) % Baso % (Auto) (0-1) % Sodium 138 L (140-148) mmol/L Potassium 4.0 (3.6-5.2) mmol/L Chloride 106 (100-108) mmol/L Carbon Dioxide 27 (21-32) mmol/L Anion Gap 9.0 (5.0-14.0) mmol/L BUN 9 (7-18) mg/dL Creatinine 0.8 (0.6-1.0) mg/dL Est Cr Clr Drug Dosing 75.48 mL/min Estimated GFR (MDRD) > 60 (>60) Glucose 98 (74-106) mg/dL Lactic Acid 1.3 (0.4-2.0) mmol/L Calcium 8.0 L (8.5-10.1) mg/dL Total Bilirubin (0.2-1.0) mg/dL AST (15-37) U/L ALT (12-78) U/L Alkaline Phosphatase (46-116) U/L C-Reactive Protein (0.0-0.3) mg/dL Total Protein (6.4-8.2) g/dL Albumin (3.4-5.0) g/dL Globulin (2.3-3.5) g/dL Albumin/Globulin Ratio (1.2-2.2) Urine Color Urine Appearance Urine pH (4.5-8.0) Ur Specific [place] (1.008-1.030) Urine Protein (NEGATIVE) mg/dL Urine Glucose (UA) (NEGATIVE) mg/dL Urine Ketones (NEGATIVE) mg/dL Urine Occult Blood (NEGATIVE) Urine Nitrite (NEGATIVE) Urine Bilirubin (NEGATIVE) Urine Urobilinogen (NORMAL) mg/dL Ur Leukocyte Esterase (NEGATIVE) Urine RBC (0-5) Urine WBC (0-5) Ur Epithelial Cells Amorphous Sediment Urine Bacteria Urine Mucus EDWARDO Results - Last 24 hrs: Microbiology 06/21/18 18:56 Urine Culture - Preliminary Urine, Clean Catch Med Orders - Current: Current Medications Acetaminophen (Tylenol) 650 mg PO Q4H PRN PRN Reason: Pain (Mild 1-3)/fever Last Admin: 06/22/18 09:16 Dose: 650 mg Bupropion HCl (Wellbutrin Sr) 150 mg PO BID [facility] Last Admin: 06/22/18 09:14 Dose: 150 mg Clonazepam (Klonopin) 0.5 mg PO DAILY [facility] Last Admin: 06/22/18 09:14 Dose: 0.5 mg Fluoxetine HCl (Prozac) 20 mg PO DAILY [facility] Last Admin: 06/22/18 09:14 Dose: 20 mg Sodium Chloride (Normal Saline) 1,000 mls @ 125 mls/hr IV ASDIRECTED [facility] Last Admin: 06/22/18 06:42 Dose: 125 mls/hr Ibuprofen (Motrin) 600 mg PO Q6H PRN PRN Reason: Pain/Fever Last Admin: 06/22/18 07:30 Dose: 600 mg Naltrexone HCl (Naltrexone) 50 mg PO BID [facility] Last Admin: 06/22/18 09:14 Dose: 50 mg Ondansetron HCl (Zofran Odt) 4 mg PO Q6H PRN PRN Reason: Nausea able to take PO Last Admin: 06/22/18 07:29 Dose: 4 mg Ondansetron HCl (Zofran) 4 mg IV Q6H PRN PRN Reason: Nausea/Vomiting Sodium Chloride (Saline Flush) 10 ml FLUSH ASDIRECTED PRN PRN Reason: Keep Vein Open Discontinued Medications Ceftriaxone Sodium (Rocephin) 2,000 mg IVPUSH ONETIME ONE Stop: 06/21/18 19:14 Last Admin: 06/21/18 19:28 Dose: Not Given Hydromorphone HCl (Dilaudid) 0.5 mg IVPUSH ONETIME ONE Stop: 06/21/18 18:56 Last Admin: 06/21/18 19:11 Dose: 0.5 mg Sodium Chloride (Normal Saline) 1,000 mls @ 1,000 mls/hr IV ASDIRECTED [facility] Last Admin: 06/21/18 19:01 Dose: 1,000 mls/hr Acetaminophen 1,000 mg/ Premix 100 mls @ 400 mls/hr IV NOW ONE Stop: 06/21/18 19:25 Last Admin: 06/21/18 20:31 Dose: 400 mls/hr Ceftriaxone Sodium 2 gm/ (Sodium Chloride) 50 mls @ 100 mls/hr IV ONETIME ONE Stop: 06/21/18 19:47 Last Admin: 06/21/18 19:28 Dose: 100 mls/hr Lactated Ringer's (Ringers, Lactated) 1,000 mls @ 1,000 mls/hr IV ASDIRECTED [facility] Last Admin: 06/21/18 20:32 Dose: 1,000 mls/hr Ketorolac Tromethamine (Toradol) 30 mg IVPUSH ONETIME ONE Stop: 06/21/18 19:51 Last Admin: 06/21/18 20:27 Dose: 30 mg Ondansetron HCl (Zofran) 4 mg IVPUSH ONETIME ONE Stop: 06/21/18 18:56 Last Admin: 06/21/18 19:09 Dose: 4 mg - Exam Quality Assessment: Denies: Supplemental Oxygen General: Reports: Alert, Oriented, Cooperative, No Acute Distress Lungs: Reports: Normal Respiratory Effort GI/Abdominal Exam: Soft, No Distention Extremities: No Pedal Edema Psy/Mental Status: Reports: Alert, Normal Affect
[2018-06-22 10:12] VITALS: BP 92/57
== END 2018-06-22 10:49 | disposition home or self-care (01) ==
LOC: JP.ED 17:45 → JP.MS 21:47
PROVIDERS: ADMIT Internal Medicine; ATTEND Internal Medicine
DX: N12 Tubulo-interstitial nephritis, not specified as acute or chronic (principal); F17.210 Nicotine dependence, cigarettes, uncomplicated; F41.9 Anxiety disorder, unspecified; F32.9 Major depressive disorder, single episode, unspecified; Z88.1 Allergy status to other antibiotic agents; Z79.899 Other long term (current) drug therapy
CPT/HCPCS: 36415; 80048; 80053; 81001; 83605; 85025; 85027; 86140; 87040; 87086; 87088; 87186; 96361; 96365; 96375; 99285; A9270; J0131; J0696; J1170; J1885; J2405; J7030; J7050; J7120

== ENCOUNTER 2019-06-25 06:37 | Day surgery (SDC) | payer OTHER ==
[2019-06-25] MEDS ORDERED: Dextrose 5%-Lactated Ringers 1,000 ML IV SCH (07:00)
[2019-06-25] MEDS ORDERED: fentaNYL 100 MCG/2 ML SDV ONE (07:12)
[2019-06-25] MEDS ORDERED: Propofol 200 MG/20 ML SDV ONE (07:13)
[2019-06-25] MEDS ORDERED: Midazolam 1 MG/ML 2 ML SDV ONE (07:13)
[2019-06-25] MEDS ORDERED: Glycopyrrolate 0.2 MG/ML 2 ML SDV IVPUSH ONE (07:30)
[2019-06-25] MEDS ORDERED: Pantoprazole 40 MG Vial IVPUSH ONE (08:00)
[2019-06-25 09:52] VITALS: BP 107/79; PULSE 89
--- NOTE | 2019-06-26 01:22 | OR ---
DATE OF PROCEDURE: 06/25/2019 SURGEON: Trent Darnell MD PREOPERATIVE DIAGNOSIS: Epigastric pain. POSTOPERATIVE DIAGNOSIS: Epigastric pain associated with [id number] antral gastritis and proximal duodenitis. PROCEDURE: Esophagogastroduodenoscopy with biopsies of antrum for CLOtest. ANESTHESIA: IV sedation. INDICATION FOR PROCEDURE: This is a 33-year-old female presenting with some ongoing upper abdominal pain. She had been on both omeprazole and ranitidine, but did stop around 2 weeks ago to see if we can get a good baseline for upper GI mucosa. The plan is to proceed with upper GI endoscopy with biopsies as indicated. Potential risks including bleeding and perforation were discussed, and the patient wishes to proceed. DETAILS OF PROCEDURE: The patient was taken to the operating room and placed in a left lateral decubitus position. IV sedation was administered, after which the upper GI endoscope was passed orally through the esophagus into the stomach, with retroflexion view of the fundus, thereafter through the pyloric channel to the junction of the third and fourth portions of the duodenum. Findings included normal hypopharynx, larynx, upper esophageal sphincter, and esophageal body. At the EG junction there was a tiny hiatal hernia, but no evidence of any esophageal inflammation or upward migration of the columnar mucosa. Within the stomach there was a small amount of retained bile present. Within the antrum there was some mild more or less diffuse redness and slight edema of the mucosa without erosions or ulcers, and this continued into the proximal duodenum with some patchy reddened areas in the duodenum, and beyond the duodenal bulb the duodenal findings were unremarkable. At this point, biopsies were taken from the antrum and sent for CLOtest for H. pylori. Minimal bleeding from the biopsy sites was seen and the procedure was then concluded. The patient's picture includes only a mild increase in symptoms when she went off the omeprazole and ranitidine, and the overall findings were very fairly mild and this raised the question as to whether or not the visualized area of gastritis and duodenitis are according to the patient's symptoms. Given this, we will set her up for CCK-stimulated HIDA scan to rule out biliary dyskinesia, and we will see her back on 07/08/2019 for followup. Trent Darnell MD /[id number]
== END 2019-06-25 08:55 | disposition home or self-care (01) ==
LOC: JP.SDS 06:37
PROVIDERS: ATTEND Surgery
DX: K29.70 Gastritis, unspecified, without bleeding (principal); K29.80 Duodenitis without bleeding; K44.9 Diaphragmatic hernia without obstruction or gangrene; F17.200 Nicotine dependence, unspecified, uncomplicated; F32.9 Major depressive disorder, single episode, unspecified; Z88.1 Allergy status to other antibiotic agents
CPT/HCPCS: 43239; 87081; C9113; J2250; J2704; J3010; J3490; J7042

== ENCOUNTER 2019-08-07 06:00 | Day surgery (SDC) | payer OTHER ==
[2019-08-07] MEDS ORDERED: Acetaminophen 500 MG Tab PO ONE (06:15)
[2019-08-07] MEDS: Dextrose 5%-Lactated Ringers 1,000 ML IV SCH ×2 (06:38→10:22)
[2019-08-07] MEDS ORDERED: fentaNYL 250 MCG/5 ML SDV ONE ×2 (07:06→07:49)
[2019-08-07] MEDS ORDERED: Neostigmine Methylsulfate 1 MG/ML 5 ML Syringe ONE (07:07)
[2019-08-07] MEDS ORDERED: Dexamethasone 4 MG/ML SDV ONE (07:07)
[2019-08-07] MEDS ORDERED: Rocuronium 50 MG/5 ML Vial ONE (07:07)
[2019-08-07] MEDS ORDERED: Ondansetron 4 MG/2 ML SDV ONE (07:07)
[2019-08-07] MEDS ORDERED: Glycopyrrolate 0.2 MG/ML 5 ML MDV ONE (07:07)
[2019-08-07] MEDS ORDERED: Propofol 200 MG/20 ML SDV ONE (07:07)
[2019-08-07] MEDS ORDERED: Succinylcholine 200 MG/10 ML MDV ONE (07:07)
[2019-08-07] MEDS ORDERED: Bupivacaine 0.5%/EPINEPHrine 1:200,000 50 ML MDV ONE (07:10)
[2019-08-07] MEDS ORDERED: cefOXitin 2 GM in Sodium Chloride 0.9% 50 ML IV ONE (07:30)
[2019-08-07] MEDS ORDERED: Ketamine 500 MG/5 ML MDV IV SCH (07:45)
[2019-08-07] MEDS ORDERED: Sugammadex Sodium 200 MG/2 ML VIAL ONE (08:17)
[2019-08-07] MEDS ORDERED: hydrOXYzine HCl 100 MG/2 ML SDV IM ONE (08:28)
[2019-08-07] MEDS ORDERED: Ketorolac 30 MG/ML SDV IVPUSH ONE (08:39)
[2019-08-07] MEDS ORDERED: Ketorolac 30 MG/ML SDV IM ONE (08:50)
[2019-08-07] MEDS ORDERED: HYDROmorphone 1 MG/ML Syringe IV PRN (09:38)
[2019-08-07] MEDS ORDERED: Ondansetron 4 MG/2 ML SDV IVPUSH PRN (09:38)
[2019-08-07] MEDS ORDERED: HYDROmorphone 0.5 MG/0.5 ML Syringe IVPUSH PRN (09:38)
[2019-08-07] MEDS ORDERED: ClonazePAM 0.5 MG Tab PO PRN (09:42)
[2019-08-07] MEDS: buPROPion 150 MG Tab.SR PO SCH ×2 (10:24→20:45)
[2019-08-07] MEDS ORDERED: Fluticasone Propionate Nasal Spray 16 GM Bottle NASBOTH SCH (11:00)
[2019-08-07] MEDS ORDERED: Pantoprazole 40 MG Vial IVPUSH SCH (11:00)
[2019-08-07] MEDS ORDERED: FLUoxetine 20 MG Cap PO SCH (11:00)
[2019-08-07] MEDS: cefOXitin 2 GM in Sodium Chloride 0.9% 50 ML IV SCH ×2 (12:11→17:43)
[2019-08-07] MEDS: Acetaminophen/HYDROcodone 325-5 MG Tab PO PRN ×3 (14:42→20:45)
[2019-08-07] MEDS ORDERED: Docusate Sodium 100 MG Cap PO PRN (19:46)
[2019-08-08] MEDS: Acetaminophen/HYDROcodone 325-5 MG Tab PO PRN ×3 (00:05→05:52)
[2019-08-08] MEDS: cefOXitin 2 GM in Sodium Chloride 0.9% 50 ML IV SCH ×2 (00:06→05:47)
[2019-08-08 07:44] VITALS: BP 114/74; PULSE 82
[2019-08-08] MEDS ORDERED: Ibuprofen 600 MG Tab PO PRN (07:46)
[2019-08-08] MEDS ORDERED: Acetaminophen/HYDROcodone 325-5 MG Tab PO PRN (07:47)
[2019-08-08] MEDS ORDERED: Magnesium Hydroxide 400 MG/5 ML Susp 30 ML Cup PO ONE (08:28)
[2019-08-08] MEDS ORDERED: Pantoprazole 40 MG Tab.CR PO SCH (08:30)
--- NOTE | 2019-08-10 08:11 | DISCH ---
ADMISSION DIAGNOSES: Biliary dyskinesia; recurrent major depression disorder; enlarged parotid gland, chronic, right; high-grade squamous intraepithelial lesion; HPV in female; overweight, BMI 30; nicotine dependence. DISCHARGE DIAGNOSES: Diagnostic laparoscopy with: 1. Cholecystectomy. 2. Excision of petros hepatic lymph node. 3. Repair of umbilical hernia for biliary dyskinesia, ejection fraction 27%, enlarged petros hepatic lymph node, and small umbilical hernia. Date of surgery, 08/07/2019. HISTORY: Ana Nieves is a 33-year-old female with biliary dyskinesia and ejection fraction of 27%. After preoperative evaluation and discussion of possible risks and possible complications, she wished to proceed with surgical procedure. HOSPITAL COURSE: Ana had her surgery on 08/07/2019. She had no operative complications. She did have difficulty within the first few hours with pain control. She had been on naltrexone and Wellbutrin combination for weight loss and did not stop the naltrexone prior to surgery so it blocked the pain medication. Her Flint was increased, and she was given ibuprofen, along with Tylenol, and that did help with pain. She has been up, walking. Her oral intake adequate, urine output adequate, vital signs stable. She is able to be discharged to home on first postop day. PHYSICAL EXAMINATION: GENERAL: Ana is a 33-year-old female. Height is 5 feet 1 inch, weight is 160 pounds. VITAL SIGNS: TPR is 98.6, 82, 16. Blood pressure 114/74. HEENT: Negative. NECK: Supple. HEART: Regular rate and rhythm. LUNGS: Clear. ABDOMEN: Sutures intact. Incisions look good. Abdominal binder has been on. She does have some bruising around her umbilical area. EXTREMITIES: Without peripheral edema. DISPOSITION: Discharged to home. CONDITION: Stable and improving. FOLLOWUP: Followup appointment with Rosa Mohan PA-C, on 08/19/2019 at a.m. HOME MEDICATIONS: 1. Flint 5/325 mg 1 to 2 tabs every 4 hours p.r.n. pain, #40. 2. Colace 100 mg p.o. b.i.d. p.r.n. #60. 3. Ibuprofen 600 mg p.o. q.6 hours p.r.n. pain. To discontinue taking the naltrexone while on the opioid pain medication and to resume home medications. DIET: Usual diet as tolerated, gradually progressed. Drink 8 to 10 glasses of water a day. ACTIVITY: No lifting greater than 10 pounds for 2 weeks. Driving; do not drive for 1 week and while on pain medication. Walk at least 6 times daily inside your home. WOUND INCISION CARE: Keep operative site clean and dry. Wear abdominal binder for 2 weeks and as needed. DISCHARGE INSTRUCTIONS: Notify provider if any fever, increased pain, swelling, redness, nausea, or vomiting. Use incentive spirometer 10 times every hour while awake.
--- NOTE | 2019-08-16 12:02 | OR ---
DATE OF PROCEDURE: 08/07/2019 SURGEON: Trent Darnell MD PREOPERATIVE DIAGNOSIS: Biliary dyskinesia. POSTOPERATIVE DIAGNOSES: 1. Biliary dyskinesia. 2. Enlarged petros hepatis lymph node. 3. Small umbilical hernia. OPERATIVE PROCEDURE: Diagnostic laparoscopy with: 1. Cholecystectomy (33396). 2. Excision of petros hepatis lymph node (99118). 3. Repair of umbilical hernia (94043). ANESTHESIA: General. TERRAZZO MECHANIC HELPER: Rosa Mohan PA-C. INDICATIONS FOR PROCEDURE: This is a 33-year-old presenting with ongoing episodes of pain consistent with biliary colic. A CCK-stimulated HIDA scan was obtained, which showed a below normal ejection fraction of 27% and reproduction of her pain with the CCK injection. Plan is to proceed with a laparoscopic cholecystectomy. Potential risks including bleeding, infection, injury to underlying viscera such as common bile duct, possible incomplete relief of symptoms were overall reviewed, and the patient wishes to proceed. DETAILS OF PROCEDURE: The patient was taken to the operating room, placed in a supine position. After general endotracheal anesthesia was induced, the abdomen was prepped and draped. A transverse epigastric incision was made and carried down through the skin and subcutaneous tissue and the peritoneal cavity entered under direct vision with an Optiview trocar, inflated to 15 mmHg pressure with CO2. Laparoscope was reinserted. No underlying trocar insertion site injuries were seen. Following this, subumbilical incision was made. The patient was noted to have a small umbilical hernia. The 12 mm trocar was then brought directly through the hernia, which measured roughly around 8 to 10 mm in diameter in terms of the fascial defect. One additional 5 mm trocar was placed in the right subcostal area. Bilateral subcostal transversus abdominis plane blocks were then placed and the upper abdomen examined. The patient was noted to have a thickened somewhat edematous-appearing gallbladder with some omental adhesions. These were initially taken down with Harmonic Scalpel. The gallbladder was then retracted anteriorly and laterally and dissection began on the gallbladder neck and continued around the gallbladder neck and cystic duct junction. Once that area was well delineated as was the adjacent cystic artery, both structures were clipped 3 times proximally, once distally and then divided. The gallbladder was then dissected off the gallbladder bed using the Harmonic scalpel and delivered through the epigastric trocar site. The patient was noted to have some fine sludge within the gallbladder as well as cholesterolosis evident within the gallbladder mucosa. Further inspection revealed somewhat larger lymph node located in the petros hepatis. This was excised and sent as a separate specimen. At that point, no further problems noted. Drain was felt not to be necessary. The camera was then brought back up to the epigastric port, and the umbilical hernia was then closed by means of a laparoscopic suture passer placing 4 sutures of 0 Vicryl stitch in an orientation such that the closure would be transverse. Once these were in place, remaining the trocars were removed, peritoneal cavity deflated. The hernia sutures were then tied. The epigastric trocar site was also closed at the fascial level with single 0 Vicryl stitch and the skin at each incision was closed with 4-0 Vicryl skin stitch, dressing was applied. The patient was taken to the recovery room in satisfactory condition. There were no evident complications. Physician housekeeper and laundry assistant, Rosa Mohan, played an essential role in assisting in this case helping to position the patient, retract structures as needed, as well as suturing and cutting sutures when indicated. Her presence improved patient safety and decreased operative time. Trent Darnell MD /[id number]
== END 2019-08-08 09:14 | disposition home or self-care (01) ==
LOC: JP.SDS 06:00 → JP.MS 08:20 → JP.SDS 08-08 09:14
PROVIDERS: ATTEND Surgery
DX: K81.1 Chronic cholecystitis (principal); R59.0 Localized enlarged lymph nodes; K42.9 Umbilical hernia without obstruction or gangrene; K21.9 Gastro-esophageal reflux disease without esophagitis; E66.9 Obesity, unspecified; F33.42 Major depressive disorder, recurrent, in full remission; F17.210 Nicotine dependence, cigarettes, uncomplicated; Z88.1 Allergy status to other antibiotic agents; Z68.30 Body mass index [BMI] 30.0-30.9, adult; Z79.899 Other long term (current) drug therapy
CPT/HCPCS: 36415; 38570; 47562; 81025; 82247; 84075; 85027; 88304; 88305; A9270; C9113; J0171; J0330; J0694; J1100; J1170; J1885; J2405; J2704; J2710; J2795; J3010; J3410; J3490; J7042; J7050

== ENCOUNTER 2024-07-25 01:30 | Emergency (ER) | payer OTHER ==
[2024-07-25 01:46] VITALS: BP 120/85; PULSE 99
[2024-07-25 02:04] LABS: BASOPHILS ABSOLUTE AUTO 0.06 K/uL (0.00-0.10); BASOPHILS PERCENT AUTO 0.7 % (0.1-1.3); EOSINOPHILS PERCENT AUTO 4.5 % (0.0-5.4); HEMATOCRIT 41.1 % (34.3-46.0); HEMOGLOBIN 13.9 g/dL (11.2-15.5); IMMATURE GRAN ABSOLUTE AUTO 0.03 K/uL (0.00-0.23); IMMATURE GRAN PERCENT AUTO 0.3 % (0.0-0.7); LYMPHOCYTES ABSOLUTE AUTO 3.44 K/uL (0.8-3.3); LYMPHOCYTES PERCENT AUTO 38.8 % (11.4-47.7); MEAN CORPUSCULAR HEMOGLOBIN 32.6 pg (31.6-35.5); MEAN CORPUSCULAR HGB CONC 33.8 g/dL (31.6-35.5); MEAN CORPUSCULAR VOLUME 96.5 fL (81.4-99.0); MONOCYTES ABSOLUTE AUTO 0.77 K/uL (0.20-0.90); MONOCYTES PERCENT AUTO 8.7 % (3.3-12.6); NEUTROPHILS ABSOLUTE AUTO 4.17 K/uL (1.0-7.6); PLATELET COUNT,PLT 279 K/uL (130-375); RED BLOOD CELL COUNT 4.26 M/uL (3.77-5.24); WHITE BLOOD CELL COUNT,WBC 8.9 K/uL (3.2-11.0)
[2024-07-25 02:08] LABS: APPEARANCE,URINE CLEAR (CLEAR); BILIRUBIN,URINE NEGATIVE (NEGATIVE); COLOR,URINE YELLOW (YELLOW); GLUCOSE,URINE NEGATIVE (NEGATIVE); KETONES,URINE NEGATIVE (NEGATIVE); LEUKOCYTE ESTERASE,URINE NEGATIVE (NEGATIVE); NITRITE,URINE NEGATIVE (NEGATIVE); OCCULT BLOOD,URINE NEGATIVE (NEGATIVE); PH,URINE 5.5 (5.0-8.0); PROTEIN,URINE NEGATIVE (NEGATIVE); UROBILINOGEN,URINE 0.2 EU/dL (0.2-1.0)
[2024-07-25 02:14] LABS: AMPHETAMINES SCREEN, URINE NEGATIVE (NEGATIVE); BACTERIA,URINE FEW; BARBITURATE SCREEN,URINE NEGATIVE (NEGATIVE); BENZODIAZEPINES SCREEN,URINE NEGATIVE (NEGATIVE); EPITHELIAL CELLS,URINE RARE; METHADONE SCREEN, URINE NEGATIVE (NEGATIVE); METHAMPHETAMINES SCREEN, URINE NEGATIVE (NEGATIVE); MUCUS,URINE NOT SEEN; OXYCODONE SCREEN,URINE NEGATIVE (NEGATIVE); PROPOXYPHENE SCREEN,URINE NEGATIVE (NEGATIVE); RBC,URINE 0-5 (0-5); THC SCREEN,URINE 50 NG/ML NEGATIVE (NEGATIVE); WBC,URINE 0-5 (0-5)
[2024-07-25 02:15] LABS: AMORPHOUS SEDIMENT,URINE NOT SEEN
[2024-07-25 02:25] LABS: A/G RATIO 0.9 (1.2-2.2); ALANINE AMINOTRANSFERASE,ALT 23 U/L (12-78); ALBUMIN 3.6 g/dL (3.4-5.0); ALKALINE PHOSPHATASE 42 U/L (46-116); ANION GAP 12.8 mmol/L (5.0-14.0); ASPARTATE AMNIOTRANSFERASE,AST 17 U/L (15-37); BILIRUBIN TOTAL 0.2 mg/dL (0.2-1.0); BLOOD UREA NITROGEN,BUN 8 mg/dL (7-18); CALCIUM 8.7 mg/dL (8.5-10.1); CARBON DIOXIDE,CO2 27 mmol/L (21-32); CHLORIDE,CL 112 mmol/L (100-108); CREATININE 0.8 mg/dL (0.6-1.0); EST CRCL DRUG DOSING (CG) 71.24 mL/min; ESTIMATED GFR 96 mL/min (>60); GLUCOSE RANDOM 97 mg/dL (74-106); POTASSIUM,K 3.8 mmol/L (3.6-5.2); PROTEIN TOTAL,TP 7.6 g/dL (6.4-8.2); SODIUM,NA 148 mmol/L (140-148)
[2024-07-25] MEDS: Acetaminophen 500 MG Tab PO ONE (08:54)
== END 2024-07-25 10:45 | disposition home or self-care (01) ==
LOC: JP.ED 01:30
DX: R45.851 Suicidal ideations (principal); F17.210 Nicotine dependence, cigarettes, uncomplicated; Z79.51 Long term (current) use of inhaled steroids; Z79.899 Other long term (current) drug therapy; Z88.1 Allergy status to other antibiotic agents
CPT/HCPCS: 36415; 80053; 80305; 80307; 81001; 84443; 85025; 99284; 99285; A9270